=== PATIENT | female | born 2000 | race Caucasian/White ===

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

== ENCOUNTER 2022-04-26 13:28 | Emergency (ER) | payer BC, SELFPAY ==
[2022-04-26 13:30] VITALS: BP 112/77; PULSE 90; RESP 18; TEMP 36.8; O2SAT 100; BMI 18.5
--- NOTE | 2022-04-26 14:16 | EX.ED.GENINJ ---
HPI History of Present Illness Chief Complaint: Head Injury Narrative Narrative: 21-year-old female who denies significant past medical history states that she hit her head against a cement wall by accident last evening at 1130, approximately 15 hours ago. She states she was carrying a large amount of items, tripped, and hit her forehead against the wall. She denies any neck pain or loss of consciousness. No other injury. She sustained a small abrasion to her forehead. Her tetanus immunization is up-to-date. She states today she felt nauseated with a mild headache, and is having problems concentrating. She denies any paresthesias. No other injury. PFSH PFSH Allergy/AdvReac Type Severity Reaction Status Date / Time No Known Allergies Allergy Verified 04/26/22 13:29 ROS ROS ED ROS Narrative Constitutional: No fever, no chills. HEENT: No sore throat. No neck pain. No loss of vision. No rhinorrhea. Cardiovascular: No chest pain. No palpitations. No pedal edema. Respiratory: No cough, no shortness of breath. Abdominal: No abdominal pain. Positive nausea. No vomiting. Genitourinary: No dysuria. No hematuria. Musculoskeletal: No myalgias. No arthralgias. Neurologic: Mild headaches. No dizziness. No lightheadedness. No paresthesias. Problems concentrating. Skin: No rash. No change in color. Psychiatric: No depression. No anxiety. EXAM Physical Exam Narrative Exam Narrative: Afebrile. Vital signs noted. HEENT: Normocephalic. Small abrasion without active bleeding and mild ecchymosis with small hematoma underlying central forehead near hairline. PERRL, EOMI. Neck soft and supple. No point tenderness or step off. Cardiovascular: Regular rate and rhythm. No murmurs, rubs, or gallops appreciated. Respiratory: No tachypnea. Lungs clear to auscultation bilaterally. Gastrointestinal: Abdomen soft, nontender, with normoactive bowel sounds. No rebound or guarding. Neurological: Awake. Alert. Oriented x3. Nonfocal, nonlateralizing. Able to raise arms above head without difficulty. Skin: No rash. Normal color. No pallor. Musculoskeletal: No pedal edema. Full range of motion extremities. Const Vital Signs: 04/26/22 13:30 Temperature 98.3 F Temperature Source Temporal Pulse Rate 90 Respiratory Rate 18 Blood Pressure 112/77 Blood Pressure Mean 88 Pulse Ox 100 Oxygen Delivery Method Room Air MDM MDM MDM Narrative Medical decision making narrative: I feel that the patient has a mild concussion. Treatment will be symptomatic with [id number] analgesics. I do not feel CT imaging is indicated. She was given postconcussive symptom treatment and counseling. She will follow-up with her primary care physician should her symptoms persist for the next 7 to 10 days. She was instructed on brain rest. She was given a note to be off class today, and tomorrow with hopes that her symptoms will resolve. Return instructions to the emergency department were reviewed. Disposition is discharged home in stable condition. Discharge Plan Triage Chief Complaint: Head Injury ED Provider: eNto Coronel Dx/Rx/DC Orders Clinical Impression: Post concussion syndrome, Abrasion of forehead, Closed head injury Instructions: ED Concussion, ED Head Injury (Adult) Stand Alone Forms: ED Work / School Excuse Primary Care Provider: Marisol Doctor,Out of Referrals: Marisol Delgado,Out of [Primary Care Provider] - Disposition Disposition: Home, Self Care
== END 2022-04-26 14:29 | disposition home or self-care (01) ==
LOC: ED 14:29
PROVIDERS: Emergency Provider Emergency Medicine; PCP Pediatrics; Visit Provider Emergency Medicine
DX: S00.81XA Abrasion of other part of head, initial encounter (principal); F07.81 Postconcussional syndrome; W01.198A Fall on same level from slipping, tripping and stumbling with subsequent striking against other object, initial encounter
CPT/HCPCS: 99282

== ENCOUNTER 2023-06-15 17:17 | Emergency (ER) | payer BC, SELFPAY ==
[2023-06-15 17:19] VITALS: PULSE 90; RESP 14; TEMP 36.9; O2SAT 100
[2023-06-15 17:20] VITALS: BMI 19.1
[2023-06-15 17:21] VITALS: BP 113/76
--- NOTE | 2023-06-15 17:43 | EKG12_ITS ---
Test Reason : DYSRHYTHMIA Blood Pressure : / mmHG Vent. Rate : 072 BPM Atrial Rate : 072 BPM P-R Int : 134 ms QRS Dur : 088 ms QT Int : 426 ms P-R-T Axes : 052 093 074 degrees QTc Int : 466 ms Normal sinus rhythm Rightward axis Borderline ECG Confirmed by MILEY MCCARTHY, ABBE ([id number]), film editor supervisor JERMAINE BECERRA ([id number]) on 06/22/2023 11:49:37 AM Referred By: Confirmed By:ABBE TRENT MD
[2023-06-15 17:51] LABS: Bacteria 0 SEEN /hpf (None Seen); Mucous, Urine 0 SEEN /hpf (<or=2+); Red Blood Cells-Urine 0 SEEN /hpf (0-5); Squamous Epithelial Cells - UA 0 SEEN /hpf (5-10); White Blood Cells 0 SEEN /hpf (0-5)
[2023-06-15 17:54] LABS: Color, Urine Yellow (Yellow); Glucose, Dipstick Normal (Normal); Ketone-Dipstick Negative (Negative); Leukocyte Esterase-Dipstick Negative /ul (Negative); Nitrite-Dipstick Negative (Negative); Occult Blood-Urine Negative /ul (Negative); Protein-Dipstick 15 mg/dl (Negative); Urine Bilirubin Dipstick Negative (Negative); Urine Clarity Clear (Clear); Urine Urobilinogen Normal (Normal); Urine pH 6.5 (5.0 - 8.0)
[2023-06-15 17:54] LABS: Absolute Lymphocyte Count 2.42 X10^3/uL (0.83-4.51); Absolute Neutrophil Count 4.3 X10^3/uL (2.0-7.7); Basophil# 0.07 X10^3/uL; Basophil% 0.9 % (0-1); Eosinophil# 0.28 X10^3/uL; Eosinophils% 3.6 % (0-5); Hemoglobin 11.9 g/dL (12.0-15.0); Lymphocyte # 2.42 X10^3/ul (0.83-4.51); Lymphocyte % 31.2 % (19-41); Mean Corp Hgb Conc 31.3 g/dL (32-36); Mean Corpuscular Hgb 24.9 pg (27.0-32.0); Mean Corpuscular Volume 79.7 fL (81-99); Mean Platelet Vol. 10.8 fl (6.2-12.0); Monocyte# 0.65 X10^3/uL; Monocyte% 8.4 % (0-10); NRBC Flagged by Analyzer 0 % (0-5); Neutrophil # 4.32 X10^3/uL (2.7-7.7); Neutrophil % 55.6 % (47-70); Platelet Count 262 K/mm3 (150-450); RBC Distribution Width CV 13.7 % (11.6-14.6); RBC Distribution Width SD 39.6 fl (35.1-43.9); Red Blood Count 4.77 M/mm3 (4.2-5.4); White Blood Count 7.8 K/mm3 (4.4-11.0)
[2023-06-15 17:57] LABS: Internal QC Validated? YES +Cl - CLEAR BKGD; Pregnancy, Urine Negative Negative
[2023-06-15 18:10] LABS: Anion Gap 4 (5-15); BUN 14 mg/dL (7-18); BUN/Creat Ratio 20.8 RATIO (10-20); Calcium,Total 8.9 mg/dL (8.5-10.1); Chloride 108 mmol/L (98-107); Creatinine, Serum 0.67 mg/dL (0.55-1.02); EST Glomerular Filtration Rate 118 mL/min (>60); Est Glom Filt Rate - Afr Amer 143 mL/min (>60); Glucose 89 mg/dL (74-106); Potassium 3.5 mmol/L (3.5-5.1); Sodium Level 140 mmol/L (136-145)
[2023-06-15 19:05] VITALS: BP 131/77; PULSE 75; RESP 12; O2SAT 100
--- NOTE | 2023-06-15 20:22 | EDS_ITS ---
HPI History of Present Illness Chief Complaint: Seizure Informant: patient and spouse/S.O. Onset/Context/Timing Onset: Today Context: Sudden Onset Timing: Intermittent and Lasts (Approximately 7 minutes) Quality: Syncope Location: Generalized Worsened by: Nothing Relieved by: Nothing Narrative Narrative: Patient presents with a syncopal episode and then shaking episode after she relaxed out. Patient states she is in the process of being worked up for seizures as an outpatient. Patient states this episode lasted approximately 7 minutes. Patient significant other witnessed the event. He stated that she was still shaking even after she started waking up. Patient denies biting her tongue. Patient denies any incontinence of urine or stool. Patient denies any back pain. Patient admits to a mild headache. Patient states her vision became pixelated before she had this event. Patient states that after she woke up her vision had a blue tint to it. Patient states that other times it has a green tint to it. [facility]LY [facility] Medical History Asthma Home Medications NK 06/15/23 [History Last Taken Unknown] Allergy/AdvReac Type Severity Reaction Status Date / Time sertraline Allergy Mild Anaphylaxis Verified 06/15/23 17:21 Social History Smoking Status: Never smoker ROS ROS ED Constitutional Constitutional ED: Denies chills or fever(s) Eyes Eyes: Reports blurry vision and change in vision ENT ENT ED: Denies rhinorrhea or sore throat Cardiovascular Cardiovascular: Denies chest pain or palpitations Respiratory/Chest Respiratory/Chest: Denies cough or dyspnea Gastrointestinal Gastrointestinal: Denies nausea or vomiting Genitourinary Genitourinary ED: Denies dysuria or hematuria Musculoskeletal Musculoskeletal: Denies back pain or neck pain Integumentary Denies abscess or rash Neurologic Neurologic: Reports headache(s); Denies weakness Allergic/Immunologic Allergic/Immunologic ED: Denies mouth swelling or urticaria EXAM Physical Exam Const Vital Signs: 06/15/23 17:19 06/15/23 17:21 06/15/23 18:59 Temperature 98.4 F Temperature Source Temporal Pulse Rate 90 Respiratory Rate 14 Blood Pressure 113/76 Blood Pressure Mean 88 Pulse Ox 100 Oxygen Delivery Method Room Air Room Air 06/15/23 19:05 Temperature Temperature Source Pulse Rate 75 Respiratory Rate 12 Blood Pressure 131/77 H Blood Pressure Mean 95 Pulse Ox 100 Oxygen Delivery Method Positive well nourished and well developed General Appearance ED: well developed and NAD HEENT Reports moist mucous membranes Eyes PERRL and EOMs intact bilaterally Neck supple and no JVD Chest Wall inspection of chest normal and palpation of chest normal Resp normal respiratory effort and clear to auscultation bilaterally Cardio regular rate and regular rhythm GI non-tender and non-distended Palpation: soft Extremity normal to inspection General Extremety ED: Negative for edema or tenderness General Extremity: Negative for edema Neuro oriented x3, CN's II-XII intact bilaterally and no sensory deficits noted Sensorium / Orientation: alert Motor Exam: strength 5/5 throughout Psych mental status grossly normal Skin skin turgor normal MDM MDM MDM Narrative Medical decision making narrative: Differential diagnosis includes cardiac dysrhythmia, cardiac ischemia, electrolyte abnormality, seizure disorder, intracranial bleeding, and mass. CT scan of the brain will be obtained to assess for intracranial bleeding and intracranial mass. CBC will be obtained to assess for leukocytosis and anemia. Basic metabolic profile will be obtained to assess for electrolyte abnormality and renal function. Urinalysis will be obtained to assess for urinary tract infection and hematuria. Urine hCG will be obtained to assess for . EKG will be obtained to assess for cardiac dysrhythmia and cardiac ischemia. History & Record Review Discussion w/independent historian: Patient and Significant other Lab Data Attestation: I reviewed the patient's lab results. Lab results narrative: CBC was reviewed and was within normal limits. Basic metabolic profile was reviewed and was within normal limits. Urinalysis was reviewed. There is no evidence of urinary tract infection or hematuria. Urine nature G was reviewed and was negative. Labs: Laboratory Results - last 24 hr 06/15/23 06/15/23 17:40 17:45 WBC 7.8 RBC 4.77 Hgb 11.9 L Hct 38.0 MCV 79.7 L MCH 24.9 L MCHC 31.3 L RDW Std Deviation 39.6 RDW Coeff of Loki 13.7 Plt Count 262 MPV 10.8 Immature Gran % (Auto) 0.300 Neut % (Auto) 55.6 Lymph % (Auto) 31.2 Mobile % (Auto) 8.4 Eos % (Auto) 3.6 Baso % (Auto) 0.9 Absolute Neuts (auto) 4.3 Absolute Lymphs (auto) 2.42 Nucleated RBC % 0 Sodium 140 Potassium 3.5 Chloride 108 H Carbon Dioxide 28.0 Anion Gap 4 L BUN 14 Creatinine 0.67 Est GFR (MDRD) Af Amer 143 Est GFR (MDRD) Non-Af 118 BUN/Creatinine Ratio 20.8 H Glucose 89 Calcium 8.9 Urine Color Yellow Urine Clarity Clear Urine pH 6.5 Ur Specific [place] 1.010 Urine Protein 15 H Urine Glucose (UA) Normal Urine Ketones Negative Urine Occult Blood Negative Urine Nitrite Negative Urine Bilirubin Negative Urine Urobilinogen Normal Ur Leukocyte Esterase Negative Urine RBC 0 SEEN Urine WBC 0 SEEN Ur Squamous Epith Cells 0 SEEN Urine Bacteria 0 SEEN Urine Mucus 0 SEEN Urine Test Negative Radiography Diagnostic Testing: CT scan of the brain was obtained. There is no acute intracranial abnormality. This was interpreted by the radiologist and was also independently reviewed by myself. EKG Initial EKG: Attestation: I personally reviewed and interpreted this EKG as follows: Interpretation: Sinus Rhythm (72) and No Acute Injury Pattern Comments: EKG was obtained. On my independent interpretation, it showed a normal sinus rhythm with a rate of 72. AK interval, QRS interval, and QTc intervals were all normal. Wilson was normal. There are no acute ST or T wave changes. Prior EKG tracings: not available for review Prior: No Prior Treatment and Re-Evaluation :: Seizure precautions were maintained. Patient had no seizure activity department. Patient was advised of her findings. Patient was instructed to follow-up with her primary care physician for further outpatient work-up of her seizures. Patient and significant other understood and were agreeable with the plan. All questions were answered. Discharge Plan Triage Chief Complaint: Seizure ED Provider: Sherwin Johnson Dx/Rx/DC Orders Clinical Impression: Seizure, Syncope and collapse Instructions: ED Seizure, Recurrent (Adult) Prescriptions: No Action NK Primary Care Provider: David Encarnacion Referrals: David Encarnacion MD [Primary Care Provider] - 3-5 Days Disposition Disposition: Home, Self Care
--- NOTE | 2023-06-15 20:23 | CT_ITS ---
INDICATION: Seizure EXAMINATION: CT BRAIN - CT Head or Brain W/O Contrast Injection TECHNIQUE: Multiple axial images were obtained of the head without intravenous contrast. A radiation dose optimization technique was used for this scan. IV Contrast dosage and agent: None. COMPARISON: None. FINDINGS: BRAIN PARENCHYMA: No intra- or extra-axial hemorrhage. No evidence of acute infarct. No intracranial mass or mass effect. Posterior fossa structures are unremarkable. CSF SPACES: Appropriate for age. No hydrocephalus. Basal cisterns are patent. CALVARIUM, SKULL BASE, PARANASAL SINUSES AND MASTOID AIR CELLS: Clear. No discrete lytic or blastic abnormalities. ORBITS: Both globes, extraocular muscles, optic nerves and retrobulbar fat appear unremarkable. CT/Brain/Head without Contrast IMPRESSION: No acute intracranial findings. Electronically Signed: Yomi Wall MD at 21:10 EST ,
[2023-06-15 21:00] VITALS: BP 123/73; PULSE 80; RESP 14; O2SAT 98
[2023-06-15 23:00] VITALS: BP 117/75; PULSE 75; RESP 12; O2SAT 99
== END 2023-06-15 23:07 | disposition home or self-care (01) ==
PROVIDERS: Emergency Provider Emergency Medicine; PCP Pediatrics; Visit Provider Emergency Medicine
DX: R56.9 Unspecified convulsions (principal); R55 Syncope and collapse; J45.909 Unspecified asthma, uncomplicated; R51.9 Headache, unspecified
CPT/HCPCS: 70450; 80048; 81001; 81025; 85025; 93005; 99285; A4216